=== PATIENT | female | born 1950 | race Caucasian/White ===

== ENCOUNTER → 2020-09-12 13:17 | Outpatient (CLI) | payer OTHER, SELFPAY ==
[2020-09-12 16:04] LABS: COVID19 -Nasal RAPID Negative (Negative)
== END ==
PROVIDERS: Visit Provider Physician Assistant
DX: Z01.812 Encounter for preprocedural laboratory examination (principal); Z20.822 Contact with and (suspected) exposure to COVID-19
CPT/HCPCS: 87635

== ENCOUNTER 2020-09-14 08:58 | Day surgery (SDC) | payer OTHER, SELFPAY ==
[2020-09-14] VITALS (8 sets, daily range): BP systolic 108–160; BP diastolic 65–81; PULSE 61–70; RESP 14–19; TEMP 36.4–36.6; O2SAT 96–97; BMI 44.2
--- NOTE | 2020-09-14 | PATH_ITS ---
[facility] Accession Number: [id number] . 01 Material submitted: . PART A: hepatic flexure - HEPATIC COLON POLYP PART B: sigmoid colon - SIGMOID POLYP . 02 Diagnosis: A. Hepatic Flexure Polyp, Biopsy: Tubular adenoma. . B. Sigmoid Colon Polyp, Biopsy: Tubular adenoma. MRV 09/16/2020 1312 Local . 02 Electronically signed: . Lyle Sanchez MD, PhD, Pathologist NPI- [id number] . 01 Gross description: . Part A: HEPATIC COLON POLYP: Received in formalin are 3 fragment(s) of hernandez, soft tissue measuring 0.7 x 0.2 x 0.2 cm to 0.3 x 0.2 x 0.2 cm submitted entirely in 1 cassette(s) Part B: SIGMOID POLYP: Received in formalin is 1 fragment(s) of hernandez, soft tissue measuring 0.5 x 0.3 x 0.3 cm submitted entirely in 1 cassette(s) /PATSY 09/15/2020 0554 Local . 02 Pathologist provided ICD-10: D12.3, D12.5 . 02 CPT . 362858, [id number] Performed at: 01 [facility] [address], [place], [place] [id number] MD Jeremy Gayle MD Phone: [phone] Performed at: 02 [facility] [address] [place], [place] [id number] MD Belgica aPrk MD Phone: [phone]
[2020-09-14] MEDS: SODIUM CHLORIDE 0.9% 1,000 ML 84 ML IV (09:35)
--- NOTE | 2020-09-14 10:24 | P.HP_ITS ---
History of Present Illness History of Present Illness Chief complaint: [facility] Narrative: Personal history of colon polyps and family history of colon cancer in a first-degree relative (father) Patient History Medical History (Updated 09/14/20 @ 09:15 by Sandra Canela RN) Chronic low back pain COPD (chronic obstructive pulmonary disease) History of adenomatous polyp of colon Hypothyroidism Surgical History (Updated 09/14/20 @ 09:16 by Sandra Canela RN) History of carpal tunnel surgery of right wrist History of rotator cuff surgery History of surgical removal of pilonidal cyst Family & Social History Family History (Updated 09/14/20 @ 09:16 by Sandra Canela RN) Father Colon cancer Family/Other Colon cancer Tobacco & Substance use: Smoking Status Former smoker alcohol intake current alcohol intake frequency a few times a month Substance Use Type does not use Meds Home Medications and Allergies Home Medications Medication Instructions Recorded Confirmed Type albuterol sulfate 2.5 mg INHALATION QID PRN 09/14/20 09/14/20 History levothyroxine 50 mcg tablet 50 mcg PO DAILY 09/14/20 09/14/20 History montelukast 10 mg tablet 10 mg PO DAILY 09/14/20 09/14/20 History Allergies Allergy/AdvReac Type Severity Reaction Status Date / Time pollen extracts Allergy Verified 09/14/20 09:17 Exam Vital Signs (past 8 hours): - 09/14/20 09:23 Temperature 97.5 F L Pulse Rate 70 Respiratory Rate 18 Blood Pressure 160/81 H Pulse Oximetry 96 Oxygen Delivery Method Room Air Oxygen Flow Rate 0 Narrative Exam Narrative: Oropharynx free of lesions Chest clear to auscultation percussion Cardiac exam reveals no S3 or murmur Assessment & Plan Assessment & Plan narrative: History of colon polyps and family history of colon cancer need for follow-up colonoscopy. Risks, benefits, alternatives have been explained.
--- NOTE | 2020-09-14 10:25 | P.OP.ENDO_ITS ---
Operative Date/Time/Diagnoses Date of procedure: 09/14/20 Pre-op diagnosis: See indication and findings Procedure & Clinicians Study performed: Colonoscopy Indications: Personal history of colon polyps and family history of colon cancer in a first-degree relative Surgeon: Leigha Walton Procedure Notes Procedure in detail: After informed consent was obtained patient was placed in left lateral decubitus position. The video colonoscope was introduced the rectum slowly advanced to cecum. On slow withdrawal mucosa was carefully examined. The scope was removed. The patient tolerated procedure well. Blood loss none Complications none Sedation Total sedation time 22 minutes Versed 8 mg fentanyl 100 micro g IV titration Findings 1. 6 mm polyp at the opening to a diverticulum in the sigmoid cold snared and removed completely 2. Eight mm sessile polyp at the hepatic flexure. Cold snared and removed com pletely 3. Extensive sigmoid and left-sided diverticulosis 4. Otherwise negative colonoscopy to cecum. Will be in touch regarding pathology results patient will need follow-up colonoscopy in 5 years.
[2020-09-14] MEDS: fentaNYL 250 MCG/5 ML INJ IV (10:34)
[2020-09-14] MEDS: MIDAZOLAM 5 MG/5 ML VIAL IV (10:46)
--- NOTE | 2020-09-14 11:33 | SUR.PHASEII ---
Report to Kelsea RN, pt to pacu phase 2 in stable condition sitting up chatting with staff and drinking gingerale
== END 2020-09-14 12:05 | disposition home or self-care (01) ==
PROVIDERS: Referring Provider Internal Medicine Gastroenterology; Visit Provider Internal Medicine Gastroenterology
PROC: 0DJD8ZZ Inspection of Lower Intestinal Tract, Via Natural or Artificial Opening Endoscopic (ICD-10-PCS; CPT 45378; principal; 2020-09-14 10:00)
DX: Z12.11 Encounter for screening for malignant neoplasm of colon (principal); Z86.010 Personal history of colon polyps; Z80.0 Family history of malignant neoplasm of digestive organs; J44.9 Chronic obstructive pulmonary disease, unspecified; E03.9 Hypothyroidism, unspecified; K57.30 Diverticulosis of large intestine without perforation or abscess without bleeding; D12.3 Benign neoplasm of transverse colon; D12.5 Benign neoplasm of sigmoid colon
CPT/HCPCS: 45385; J2250; J3010

== ENCOUNTER → 2022-08-24 13:01 | Outpatient (CLI) | payer OTHER, SELFPAY ==
[2022-08-24 13:52] LABS: Add Manual Diff / Slide Review NO; Basophils Absolute Auto 100 /uL (0-100); Basophils Percent Auto 0.7 % (0-2); Eosinophils Absolute Auto 200 /uL (0-450); Eosinophils Percent Auto 2.5 % (2-4); Hematocrit 40.2 % (36-46); Hemoglobin 13.4 g/dL (12.0-16.0); Lymphocytes Absolute Auto 2100 /uL (1100-4500); Lymphocytes Percent Auto 30.6 % (25-40); Mean Corpuscular HGB Conc 33.4 % (30-36); Mean Corpuscular Hemoglobin 30.9 PG (26-34); Mean Corpuscular Volume 92.4 fL (80-100); Monocytes Absolute Auto 600 /uL (0-900); Monocytes Percent Auto 8.1 % (3-14); Neutrophils Absolute Auto 4000 /uL (1500-7000); Neutrophils Percent Auto 58.1 % (50-75); Platelet Count 203 X10^3/uL (150-400); Red Blood Cell Count 4.35 X10^6/uL (4.0-5.2); Red Cell Distribution Width 14.1 % (11.6-14.8); White Blood Cell Count 6.9 X10^3/uL (4.5-11.0)
[2022-08-24 14:17] LABS: BUN Creatinine Ratio 26.8 (6-22); Blood Urea Nitrogen 22 mg/dL (7-17); Carbon Dioxide 31 mmol/L (22-32); Chloride 105 mmol/L (98-107); Estimated Glomerular Filt Rate > 60 mL/min (>60); Glucose 136 mg/dL (80-110); HEMOLYSIS < 15 (0-50); Potassium 4.3 mmol/L (3.4-5.1); Sodium 140 mmol/L (137-145)
[2022-08-24 14:41] LABS: Appearance Urine UA CLEAR; Bilirubin Urine UA NEGATIVE (NEGATIVE); Color Urine UA YELLOW; Glucose Urine UA NEGATIVE (Negative); Ketones Urine UA NEGATIVE (NEGATIVE); Leukocyte Esterase Urine UA NEGATIVE (NEGATIVE); Nitrite Urine UA POSITIVE (Negative); Occult Blood Urine UA NEGATIVE (Negative); Protein Urine UA NEGATIVE (Negative); Specific Gravity Urine UA 1.025 (1.000-1.035)
[2022-08-24 14:48] LABS: pH Urine UA 5.5 (4.5-8.0)
[2022-08-24 14:57] LABS: Bacteria Urine Many (>30); Culture Indicated Urine Specimen Cultured; RBC Urine 1-5/HPF (0-5/HPF); Squamous Epithelial Cell Urine 1-5 /HPF (0-5/HPF); WBC Urine 1-5/HPF (0-5/HPF)
[2022-08-25 08:39] LABS: x Labcorp Estim. Avg Glu (eAG) 117 mg/dL (.); x Labcorp Hemoglobin A1c 5.7 % (4.8-5.6)
== END ==
PROVIDERS: PCP Registered Nurse; Referring Provider Orthopaedic Surgery; Visit Provider Orthopaedic Surgery
DX: Z01.818 Encounter for other preprocedural examination (principal); Z01.812 Encounter for preprocedural laboratory examination; R73.9 Hyperglycemia, unspecified; N39.0 Urinary tract infection, site not specified
CPT/HCPCS: 36415; 80048; 81001; 83036; 85025; 87077; 87086; 87186; 93005; 93010

== ENCOUNTER 2023-04-23 11:36 | Day surgery (SDC) | payer OTHER, SELFPAY ==
[2023-04-17 13:57] VITALS: BMI 39.4
[2023-04-23] VITALS (13 sets, daily range): BP systolic 95–140; BP diastolic 42–75; PULSE 55–73; RESP 10–18; TEMP 35.9–37.2; O2SAT 91–100; BMI 38.5
[2023-04-23] MEDS: LACTATED RINGERS 1,000 ML 42 ML IV (12:03)
[2023-04-23] MEDS: CELECOXIB 200 MG CAPSULE PO (12:40)
[2023-04-23] MEDS: ACETAMINOPHEN 325 MG TABLET 975 MG PO (12:40)
[2023-04-23] MEDS: VANCOMYCIN 1,000 MG/200 ML PIGGYBACK 200 MG IV (13:14)
--- NOTE | 2023-04-23 14:00 | DI.RAD.S_ITS ---
PROCEDURE: XR PELVIS 1-2V INDICATIONS: JEFFERY TECHNIQUE: 1 view of the lower pelvis acquired. COMPARISON: None. FINDINGS: Bones: Patient is status post left hip arthroplasty, with hardware components in expected positions. The hip joint appears congruent. The visualized bony structures appear intact. Soft tissues: Overlying postoperative changes are noted. No suspicious soft tissue densities. IMPRESSION: Expected post-operative appearance of a hip arthroplasty. Approved by: Daniel Fowler M.D. on 04/23/2023 at 21:22
--- NOTE | 2023-04-23 14:21 | P.OP_ITS ---
Operative Date/Time/Diagnoses Date of procedure: 04/23/23 Time of procedure: 14:50 Pre-op diagnosis: Severe left hip OA Post-op diagnosis: same Procedure & Clinicians Procedure: Left total hip arthroplasty posterior Same procedure as scheduled: Yes Indications: The patient has had progressively worsening left hip pain with radiographic changes consistent with arthritis. Non-operative management has failed and the patient has requested total hip replacement. The risks, benefits and alternatives to surgery were discussed with the patient prior to proceeding. Risks discussed included, but were not limited to, failure to relieve pain, leg length discrepancy, dislocation, stiffness, infection, nerve damage, deep venous thrombosis, pulmonary embolism, stroke, coma, heart attack, permanent paralysis and , as well as the potential need for eventual revision of the prosthetic. Surgeon: Tena Casillas Test Architect: Alexandre Pérez Anesthesia Type: General and Peripheral nerve block Operative Notes Findings: Severe left hip OA, adequate stability Closure Type: primary Specimen(s): none sent Prosthetic devices, grafts, tissues, transplants, or devices: Casillas and nephew polar stem size 2 standard with collar, R3 size 50,one 6.5 mm screw, neutral poly liner, 36 by 50, 36 by - 3 cobalt chromium head Estimated Blood Loss (mL): 250 Procedure in detail: The patient was seen in the pre-operative area, where the patient identified the left hip as the operative site and this was marked with my initials. The patient received pre-operative antibiotics and was taken to the operating room and placed on the operative table in the right lateral decubitus position after satisfactory anesthesia. A director of public safety out? was performed. The left leg was prepared from the ankle to the iliac crest with ChloroPrep in the usual fashion and draped through sterile drapes. A PA was used during the procedure was essential for intraoperative retraction and safe implantation of the components. Patient was large and had a fairly stiff hip and 2 PAs were used for retraction and implantation of the components. The hip was approached through an approximately 20 cm incision centered over the greater trochanter and curving gently posteriorly as it went proximally. This was carried sharply to the fascia ashlyn, which was divided and retracted with a self retaining retractor. The trochanteric bursa was excised with care being taken to avoid the sciatic nerve, which was identified and protected throughout the case. The short external rotators were incised and the capsulomuscular flap was raised and tagged for later repair. The hip was dislocated, and a femoral neck osteotomy performed approximately 15 mm above the lesser trochanter. Retractors were placed around the femur. The canal was opened with a box cutting osteotome, followed by a T handled reamer and a lateralizing reamer. The chili pepper broach was then used, followed by sequential broaching until there was good stability of the broach in the femur. Retractors were placed to expose the acetabulum. The labrum and central soft tissues were removed. Reaming was performed initially going up in 2 mm increments, then 1 mm increments until good bite was obtained with an odd sized reamer. The cup 1 mm larger than the last reamer was then inserted using the appropriate anteversion guides. It was further stabilized with a single screw. A trial neutral liner was placed. The broach was placed in the canal. A trial head and neck were then placed and the hip relocated and checked for leg length and stability. An intraoperative film confirmed the component position and no evidence of fracture. The patient was stable in the position of sleep, of squatting, and could be put through a range of motion with 45 degrees internal rotation without dislocation. At 90 degrees flexion, internal rotation to 70? was possible before dislocation. This was felt to be satisfactory and the appropriate components were opened, and the trials were removed. The acetabular liner was impacted into position. The final stem was then impacted into the prepared femoral canal. A brief Betadine soak was performed while trialing with head options. The hip was meticulously irrigated with normal saline. Finally the femoral head was impacted onto the stem. The acetabulum was cleared of all material and the hip relocated one final time. The capsulomuscular flap was then repaired to the greater trochanter though an awl hole using the tag sutures. The short external rotators were repaired with a nonabsorbable suture. The fascia ashlyn was closed with Vicryl. The subcutaneous layer was closed with barbed sutures and skin dimas. A erma Dressing was applied and the patient was taken to recovery having tolerated the procedure well. Complications: none Post-operative Condition: stable Disposition: Acute Care Plan for aftercare: The patient will be maintained on a standard total hip replacement protocol with weight bearing as tolerated and posterior hip precautions. The patient will receive Aspirin and sequential compression devices for DVT prophylaxis. The patient will be discharged home when safe for the home environment.
--- NOTE | 2023-04-23 14:21 | PM.PREOP ---
Pre-operative Note Interval Note History & Physical reviewed/Exam performed by Physician: Yes Changes to H&P: No
--- NOTE | 2023-04-23 14:34 | SUR.OPER ---
Lateral on padded OR bed. Gel axillary roll. Arms secured on padded armboard with pillow supporting top arm. Padded hip positioner braces x4 - anterior and posterior chest and pelvis. Additional gel pad used anterior pelvis. Gel pad under bottom leg from knee to foot and secured with tape over sheet.
[2023-04-23] MEDS: CEFAZOLIN 2 GM/100 ML PREMIX 100 ML IV ×2 (15:20→23:57)
[2023-04-23] MEDS: TRANEXAMIC ACID 1,000 MG VIAL 1000 MG INJ ×2 (15:25→16:51)
[2023-04-23] MEDS: BUPIVACAINE LIPOSOME 266 MG/20 ML VIAL INJ (15:48)
[2023-04-23] MEDS: BUPIVACAINE 0.25% (PF) 60 ML, EPINEPHrine 0.3 MG INJ (15:52)
--- NOTE | 2023-04-23 17:30 | DI.RAD.S_ITS ---
PROCEDURE: XR HIP W PEL IF DONE LT 2V INDICATIONS: POST OP LEFT TOTAL HIP TECHNIQUE: AP pelvis and lateral view of the hip acquired. [facility] 04/23/2023, 16:13. FINDINGS: Bones: Patient is status post left hip arthroplasty, with hardware components in expected positions. The hip joint appears congruent. The visualized bony structures appear intact. Soft tissues: Overlying postoperative changes are noted. No suspicious soft tissue densities. IMPRESSION: Expected post-operative appearance of a hip arthroplasty. Dictated by: Carl Pink M.D. on 04/24/2023 at 8:49 Approved by: Carl Pink M.D. on 04/24/2023 at 8:50
[2023-04-23] MEDS: ONDANSETRON 4 MG/2 ML INJ IV (17:41)
[2023-04-23] MEDS: hydrOXYzine 50 MG/ML INJ 25 MG IM (17:42)
[2023-04-23] MEDS: HYDROMORPHONE 1 MG INJ IV ×2 (17:42→17:57)
[2023-04-23] MEDS: OXYCODONE IR 5 MG TABLET PO (18:18)
[2023-04-23] MEDS: LACTATED RINGERS 1,000 ML 100 ML IV (18:26)
--- NOTE | 2023-04-23 18:43 | SUR.PHASEI ---
Pt transfered to room 207 by this RN with walker and 1 belongings bag. Peace sign broach from walker that fell off given to daughter in specimen cup. Handoff to Ольга DEXTER at bedside.
[2023-04-23] MEDS: METFORMIN HCL 500 MG TABLET 1000 MG PO (19:05)
[2023-04-23] MEDS: ASPIRIN EC 81 MG TABLET PO (20:57)
[2023-04-23] MEDS: DOCUSATE 100 MG CAPSULE PO (20:57)
[2023-04-23] MEDS: IBUPROFEN 400 MG TABLET PO (23:58)
[2023-04-23] MEDS: ACETAMINOPHEN 325 MG TABLET 650 MG PO (23:58)
[2023-04-24] VITALS: BP 119/61; PULSE 77; RESP 16; TEMP 36.7; O2SAT 92
[2023-04-24 05:00] VITALS: BP 102/51; PULSE 68; RESP 17; TEMP 36.8; O2SAT 95
[2023-04-24] MEDS: LACTATED RINGERS 1,000 ML 100 ML IV (05:10)
[2023-04-24] MEDS: LEVOTHYROXINE 50 MCG TABLET PO (05:24)
[2023-04-24] MEDS: IBUPROFEN 400 MG TABLET PO ×5 (05:24→20:43)
[2023-04-24] MEDS: ACETAMINOPHEN 325 MG TABLET 650 MG PO ×4 (05:25→22:59)
[2023-04-24 06:26] LABS: Hematocrit 35.6 % (36-46)
[2023-04-24 08:00] VITALS: BP 98/50; PULSE 63; RESP 16; TEMP 37.1; O2SAT 98
[2023-04-24] MEDS: DOCUSATE 100 MG CAPSULE PO ×2 (08:02→20:43)
[2023-04-24] MEDS: CEFAZOLIN 2 GM/100 ML PREMIX 100 ML IV (08:02)
[2023-04-24] MEDS: ASPIRIN EC 81 MG TABLET PO ×2 (08:02→20:43)
--- NOTE | 2023-04-24 08:22 | PM.DS.1 ---
History of Present Illness History of Present Illness Date Patient Seen: 04/24/23 Time Patient Seen: 07:00 Chief complaint: OPB Narrative: Procedure: Left total hip arthroplasty posterior Same procedure as scheduled: Yes Indications: The patient has had progressively worsening left hip pain with radiographic changes consistent with arthritis. Non-operative management has failed and the patient has requested total hip replacement. The risks, benefits and alternatives to surgery were discussed with the patient prior to proceeding. Risks discussed included, but were not limited to, failure to relieve pain, leg length discrepancy, dislocation, stiffness, infection, nerve damage, deep venous thrombosis, pulmonary embolism, stroke, coma, heart attack, permanent paralysis and , as well as the potential need for eventual revision of the prosthetic. Surgeon: Tena Casillas Cut And Cover Line Worker: Alexandre Pérez Anesthesia Type: General and Peripheral nerve block Operative Notes Findings: Severe left hip OA, adequate stability Closure Type: primary Specimen(s): none sent Prosthetic devices, grafts, tissues, transplants, or devices: Casillas and nephew polar stem size 2 standard with collar, R3 size 50,one 6.5 mm screw, neutral poly liner, 36 by 50, 36 by - 3 cobalt chromium head Estimated Blood Loss (mL): 250 This morning patient has no new complaints of nausea vomiting fever or chills. Patient states she has pre-operative numbness down her left leg with no change this morning. She was able to control her pain with oral medications. She was able to use the toilet with assistance last night. Discharge Providers Provider Date of admission: 04/23/2023 Discharge Date: 04/24/23 Primary care physician: JOVITA Jo Consults: 04/23/23 06:00 Consult to Anesthesiology Routine Comment: Consulting Provider: Anesthesiologist Reason for consultation: Regional block for post operative pain control 04/23/23 16:50 Consult to Discharge Planning Routine Comment: Consult to Occupational Therapy Evaluate & Treat Comment: Physician Instructions: Evaluate and treat Consult to Physical Therapy Evaluate & Treat Comment: Physician Instructions: post op JEFFERY protocol Discharge provider: Alexandre Pérez PA-C Summary Hospital Course Discharge Diagnosis: Status post left hip total arthroplasty posterior approach Hospital Course: Multimodal pain control. Physical therapy. Status at Discharge Cognitive/behavioral status at discharge: oriented Functional status at discharge: uses cane/walker Overall status at discharge: patient is back to baseline Time Spent with Patient Time spent: Less than 30 minutes Exam Vital Signs (past 8 hours): - 04/24/23 05:00 04/24/23 08:00 Temperature 98.2 F 98.8 F Pulse Rate 68 63 Respiratory Rate 17 16 Blood Pressure 102/51 L 98/50 L Pulse Oximetry 95 98 Oxygen Flow Rate 2 0 Oxygen Delivery Method Nasal Cannula Oxygen Flow Rate 0 Narrative Exam Narrative: Patient found sleeping in bed easily aroused. JENNIFER dressing appears to be well-maintained no signs of drainage. No increase in pain with compression of posterior thigh or calf on the left side. Sensation is grossly intact of the lower extremity. Patient is able to dorsiflex or plantarflex against resistance at the left ankle. Const General: cooperative and comfortable Chest Chest: normal inspection of the chest and normal palpation of entire chest wall Objective Labs 04/24/23 05:55 Labs: Laboratory Results - last 24 hr 04/24/23 05:55 Hgb 12.0 Hct 35.6 L PFSH Medical History (Updated 04/17/23 @ 14:28 by Barbara Cardoso RN) History of COVID-19 (03/02/23) Pre-diabetes Emphysema of lung Seasonal allergies History of adenomatous polyp of colon Hypothyroidism Chronic low back pain COPD (chronic obstructive pulmonary disease) Surgical History (Updated 04/17/23 @ 14:10 by Barbara Cardoso RN) Hx of tonsillectomy History of reversal of tubal ligation Hx of tubal ligation Hx of colonoscopy (09/14/20) History of carpal tunnel surgery of right wrist History of surgical removal of pilonidal cyst History of rotator cuff surgery Family History (Updated 09/14/20 @ 09:16 by Sandra Canela RN) Father Colon cancer Family/Other Colon cancer Social History household members: family and children Smoking Status: Former smoker alcohol intake: current Discharge Assessment & Plan Assessment and Plan Assessment: Status post left hip total arthroplasty posterior approach. Plan of Treatment: Discharge home tomorrow. Patient has already received post operative medications and has been instructed in their use. Patient is reminded to take aspirin 81mg bid for DVT prophylaxis. Start outpatient physical therapy in 5-7 days. Follow up at [facility] in 2 weeks for wound check. Discharge Plan Discharge Plan Patient Disposition: Home Provider Discharge Comment: DC home pending PT approval. Discharge orders & Medications Prescriptions: No Action metformin 500 mg Tablet 1,000 mg PO QPM albuterol sulfate 90 mcg/actuation Hfa Aerosol Inhaler 2 puff INHALATION Q4-6H PRN (Reason: Shortness Of Breath) albuterol sulfate 2.5 mg /3 mL (0.083 %) Solution For Nebulization 2.5 mg INHALATION QID PRN (Reason: WHEEZES) levothyroxine 50 mcg tablet 50 mcg PO DAILY montelukast 10 mg tablet 10 mg PO DAILY Follow up/Referrals: Josi Harding FNP-[facility] [Primary Care Provider] - Tena Casillas MD [Physician] - 05/08/23 11:30 am (Follow up w/ Ronnell Pérez PA-C, at [facility] office in [place].) Diet/Activity/Treatments Diet: Diet as Tolerated Activity: Weightbearing as tolerated to left leg. Posterior hip precautions. Cold/Heat Therapy: Ice to hip as needed for pain. Skin/Wound/Dressing Care Report to your healthcare provider any signs of infection, such as:: chills, fever, night sweats, unusual drainage and unusual redness Dressing: May shower. Keep dressing in place until follow up in office. No bathing or soaking incision. Call the office if the dressing becomes saturated inside. Visit Report/Discharge Packet Instructions: DI for Hip Replacement Stand Alone Forms: Patient Portal/API Discharge Data Primary Care Provider: Josi Harding Attending Provider: Tena Casillas Quality VTE Deep Vein Thrombosis/Pulmonary Embolism Present on Admission: No
[2023-04-24] MEDS: MONTELUKAST 10 MG TABLET PO (08:36)
--- NOTE | 2023-04-24 09:08 | CM.DANOTE ---
Initial DCP Assessment Note Reviewed EMR and team rounds for status updates. Met with pt at bedside to introduce self and role. Pt was found to be alert/oriented and able to discuss her d/c today and aftercare plan. Her dtr will plan to transport her once medically cleared for d/c later this morning. Payor: [facility] Attending: Dr. Casillas Pt is a 72 year-old F post-op day 1 from her L-hip total arthroplasty surgery. She is expressing feeling comfortable, minimal pain, and has not required any pain medication this morning. She will work with PT this morning before she discharges home. Pt understands the Ortho instructions for starting OP PT therapy 5-7 days post-op, and Ortho wound care check in 2-weeks. She has all needed DME at home in preparation for her home recovery needs, and her dtr is planning to stay with her for 2-weeks post-d/c in order to provide for her care and ADL needs. No further needs identified for DCP assistance at this time. Discharge Planning/Care Management CM Discharge Assessment Start: 04/24/23 09:05 Freq: Status: Active Protocol: Document 04/24/23 09:06 DPL (Rec: 04/24/23 09:07 DPL [id number]) Discharge Planning Assessment Assigned Mc Kay Machine Operator LISET Álvarez Advance Directives? No History Provided By Patient,Medical Record Expected Length of Stay 1 Prior Living Arrangements House Household Members family,children Type of transporation used prior to Drives own vehicle admit Independent with ADL's Yes Is patient alert and oriented? Yes Caregiver for Another No DME Already Rented / Owned FWW / Walker,Cane Patient/Family Preference OP PT Therapy Barriers to Discharge No Discharge Plan Home Community Services Physical Therapy Referrals Initiated None needed Whiteboard Updated in Patient Room with Yes name and ext. # of Mc Kay Machine Operator Review Status In Process Please Provide Date Initial DC 04/24/23 Assessment Was Performed Pre-Anesthesia Assessment Start: 04/17/23 13:57 Freq: Status: Active Protocol: Document 04/17/23 13:57 CAB (Rec: 04/17/23 14:38 CAB [id number]) Pre-Anesthesia Assessment Preferred Name Zari Diagnostic Results BMP/CMP,CBC,EKG Comment Outside labs scanned in EKG @ [facility] 08/24/22 Primary Care Provider Josi Harding Seen Specialist in Last 12 Months Yes Specialist Seen Orthopedist Primary Language French Preferred Language French Hvac Refrigeration Technician Required No Height 160.02 cm Weight 101.151 kg Body Mass Index (BMI) 39.4 Hearing Ability Normal Visual Assist Glasses Dentition Type Teeth, Natural Present,Dental Implants Barriers to Learning None Hx Anesthesia Reactions No: I felt all the pain with a colonoscopy Pt concerned about getting Additional comment enough anesthesia Hx Family Anesthesia Reaction No Hx Malignant Hyperthermia No Hx Blood Transfusions No Hx Blood Transfusion Reaction No Anesthesia Review Requested No Tubing Supervisor No alcohol intake current alcohol intake frequency a few times a month Smoking Status Former smoker how long ago did patient quit smoking Approximately 2018 Substance Use Type does not use Pain Present Pain Reported Musculoskeletal Symptoms Abnormal Gait,Difficulty Walking,Joint Pain History of Falling (Recent or History of No ) Patient is completely paralyzed or No completely immobile Prosthesis or Orthotic Device Cane Mental Status Oriented to own ability Is patient on oxygen? No Does patient have CAICEDO/SOB Yes: A little Hx Sleep Apnea No CPAP/BIPAP use not prescribed Currently Taking a Beta Yareli No Can You Climb a Flight of Stairs Without No SOB Hx Chest Pain No Hx SOB Yes: A little Hx Syncope or Dizziness No Anti-Coagulant Therapy No Has a Talent Acquisition Associate No Cardiac Testing No Hx Pacemaker/ICD No Pacemaker Rep Required? No Cardiac Clearance Received Not Applicable Diet Type At Home Low Carb Dysphagia No Gastrointestinal Symptoms None Bladder Pattern Urgency Hx Urinary Self Catheterization No Diabetes No: Pre-diabetes HgbA1C 5.6 Date 03/21/23 Patient No Lactating No Hx Drug Resistant Organism No Presence of External or Internal Medical No Devices Received a COVID vaccine? Yes Received all doses? Yes Marital Status Lives With family,children Current Living Arrangements House Number of Floors (Floors) Two Floors Support System Child/Children Does the Patient Have Assistance After Yes Surgery Patient Discharge Plan Description Return Home,Other Comment Will DC to sister's house for a few days, then back to her home w/daughter Additional comment to assist with care. Pt advised same day surgery per surgeon Feels Safe in Current Environment Yes Been Physically Hurt or Threatened By a No Person in Current Environment Do you have thoughts of harming yourself None or others? Are you currently considering suicide? No Do you have a plan to hurt yourself or No Plan others? Do You Have Any Spiritual Beliefs That No May Affect Your HC Choices? Do You Have Any Cultural Practices That No May Affect Your HC Choices? Who Can We Speak to About Patient's Care Family, friends Identifying Code for Release of Patient Declines to issue Information Health Care Proxy/Next of Kin Carri (daughter) Health Care Proxy Emergency Contact Name Carri (daughter) Emergency Contact Advance Directives? No Power of Net Solutions Architect No PAC Instructions Diabetes instructions,Do not shave/clip surgical site, Durable medical equipment, Medications to take/avoid, Nasal antibiotic,No ETOH/ petroleum product on skin DOS, NPO,Post-op transportation,Pre -surgical wash,Sensory aids, Sturdy shoes/comfortable clothes,Do not bring valuables and remove jewelry
--- NOTE | 2023-04-24 09:45 | OT.IP.EVAL ---
Current Diagnoses Unilateral primary osteoarthritis, left hip (04/23/23) Surgery Performed Operation Date: 04/23/23 13:45 Actual Procedures p Total Hip Arthroplasty(Left) - Tena Casillas MD Past Medical History (Last Updated 04/17/23 @ 14:28 by Barbara Cardoso, RN) Chronic low back pain COPD (chronic obstructive pulmonary disease) Emphysema of lung History of adenomatous polyp of colon History of COVID-19 (03/02/23) Hypothyroidism Pre-diabetes Seasonal allergies Surgical History (Last Updated 04/17/23 @ 14:10 by Barbara Cardoso RN) History of carpal tunnel surgery of right wrist History of reversal of tubal ligation History of rotator cuff surgery History of surgical removal of pilonidal cyst Hx of colonoscopy (09/14/20) Hx of tonsillectomy Hx of tubal ligation Occupational Therapy Inpatient Evaluation/Re-Eval M1 PT/OT-IP Prior Functional Status Start: 04/24/23 11:11 Freq: NEEDED Status: Active Protocol: Document 04/24/23 08:55 [facility] (Rec: 04/24/23 11:25 [facility] [id number]) Medical Review Prior Functional Status Medical History Reviewed Yes Communication Independent Mobility and Gait Pt used a cane. Activities of Daily Living and IADL's Pt states had pain with ADL and IADl needs. Prior Functional Level (Other details) Pt to stay with her sister initially. Social History Household Members family,children Living Arrangements House Number of Stairs To Enter/Railing? No steps to enter. There are 2 steps to her sleeping area with a stool on the right and chair on the left for support per pt. 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 M2 OT-IP Current Condition Start: 04/24/23 11:11 Freq: Status: Active Protocol: Document 04/24/23 08:55 [facility] (Rec: 04/24/23 11:25 [facility] [id number]) Occupational Therapy Current Condition Current Condition Evaluation Date 04/24/23 Treatment Diagnosis S/P L JEFFERY posterior approach Diagnosis Onset Date 04/23/23 Post Operative Precautions Posterior Hip Precautions No Hip Flexion > 90 degrees,No Hip Internal Rotation,No Hip Adduction M3 OT- IP Subjective and Pain Start: 04/24/23 11:11 Freq: Status: Active Protocol: Document 04/24/23 08:55 [facility] (Rec: 04/24/23 11:25 [facility] [id number]) OT- Subjective Occupational Therapy Visit Type Type Initial Evaluation Visit Start Time 08:55 Visit Stop Time 09:45 Occupational Therapy Visit Comments Patient Comments Pt agreed to get up. Patient/Caregiver Goals To go home. OT Pain Assessment Pain When Pain Assessed At Rest Pain Present Pain Present Pain Reported Location left hip Intensity 3 Scale Used Numeric (0 - 10) M4 OT- IP ADL's Start: 04/24/23 11:11 Freq: Status: Active Protocol: Document 04/24/23 08:55 [facility] (Rec: 04/24/23 11:25 [facility] [id number]) OT AIB-Faay-Srsmzwa General Evaluation Self-Feeding Ability Independent OT ADL-Grooming General Evaluation Grooming Ability Independent OT ADL-Oral Care General Eval Oral Care Ability Independent OT ADL-Dressing General Eval Lower Body Dressing Ability Maximum Assistance Areas Needing Assistance Socks,Shoes Comments OT Dressing Comments Able to educated pt on use of LB dressing equipment. Educated to mili the LLE first and take out last. OT ADL-Toileting Comments OT Toileting Comments Pt not having to go. Educated best to stand to wipe so best able to follow her hip precautions. In addition use of wipes/ pads will ne helpful . Pt's bathroom is 30ft away at her sister's house and best for pt to get a BSC. OT ADL-Bathing Comments OT Bathing Comments The shower is upstair and pt states will just sponge off for now. M5 OT- IP IADL's Start: 04/24/23 11:11 Freq: Status: Active Protocol: Document 04/24/23 08:55 [facility] (Rec: 04/24/23 11:25 [facility] [id number]) OT-Instrumental Activities of Daily Living Deficits IADL Deficits Identified Deficits Home Safety Awareness Awareness of Need for Assistance at Home Good Awareness Ability to Problem Solve Emergency Able to Problem Solve Situations Home Safety Comments Pt's sister and family to assist as needed. Meal Preparation Meal Preparation Caregiver Provides Assist Hand Paint Mixer Hand Paint Mixer Caregiver Provides Assist M6 OT- IP Functional Cognition Start: 04/24/23 11:11 Freq: Status: Active Protocol: Document 04/24/23 08:55 [facility] (Rec: 04/24/23 11:25 [facility] [id number]) Cognitive Factors Limiting Selfcare Function Cognitive Ability Level of Alertness Alert Patient Orientation Name,Age,Birthday,Month,Date, Year,Day of Week,Place, Situation Attention Span Ability Capable of Focused Attention, Capable of Sustained Attention Ability to Follow Commands Able to Follow One Step Commands Cognitive Comments Cognitive Assessment Comments Pt able to follow hip precautions for ADL and mobility needs. OT- Vision and Hearing OT- Hearing Assessment OT- Hearing Assessment WFL OT- Vision Assessment Visual Acuity Glasses All The Time Visual Attentiveness WFL Occular Pursuits WFL M7 OT- IP Mobility and Balance Start: 04/24/23 11:11 Freq: Status: Active Protocol: Document 04/24/23 08:55 [facility] (Rec: 04/24/23 11:25 [facility] [id number]) OT- Bed Mobility Assessment Supine to Sit Supine to Sit Assist Moderate Assistance Sit to Supine Sit to Supine Assist Moderate Assistance Scooting Scooting Up and Down in Bed Standby Assistance OT-Transfer Assessment Sit to and From Stand Sit to and from Stand Minimal Assistance Transfers Transfer Ability Minimal Assistance Technique Transfer Destination Bed,Chair Transfer Technique Stand Step Pivot Devices Transfer Assistive Devices Gait Belt,Front Wheeled Walker Comments Mobility Comments Pt MODA to assist to help get her LLE into and out of the bed at this time. Pt ELAINE to stand and able to follow sliding her LLE forwards prior to sitting and standing. Noted pt needing cues to tighten her LLE as weak and needing heavy use of her hands on the FWW. OT- Balance Assessment Sitting Balance and Reactions Static Sitting Balance Ability Good Dynamic Sitting Balance Ability Fair Standing Balance and Reactions Static Standing Balance Ability Fair Dynamic Standing Balance Ability Poor M8 OT- IP Objective Assessments Start: 04/24/23 11:11 Freq: Status: Active Protocol: Document 04/24/23 08:55 [facility] (Rec: 04/24/23 11:25 [facility] [id number]) OT Gross Range of Motion Upper Extremity Range of Motion Assessment Within Functional Limits OT Strength Upper Extremity Strength Assessment Within Functional Limits M9 OT- IP Assessment and Plan Start: 04/24/23 11:11 Freq: Status: Active Protocol: Document 04/24/23 08:55 [facility] (Rec: 04/24/23 11:25 [facility] [id number]) OT Summary Assessment and Plan Potential Rehabilitation Potential Good Analytic Complexity at Evaluation Low Summary OT Impairments Pain,Strength,Balance, Functional Mobility,Grooming, Dressing,Toileting,Bathing, Toilet Transfers,Shower Transfers,Activity Tolerance Progress Towards Goals Progressing Toward Goals,Slow Progress due to Pain Assessment Summary Pt low complexity and main barriers are pain and LLE still weak and needing assist for ADl and mobility needs. Pt to go to her sister's house to stay initially. Pt will benefit from getting a BSC and tub bench- however pt states will just sponge off for now as the tub/shower is up multiple steps. Pt to go home with 24/7 available assist and have outpt PT. Goals Self-Feeding Goal Independent Grooming Goal Independent Dressing Goal Independent,Long Handled Shoe Horn,Evaporator,Sock Aid Toileting Goal Independent Bathing Goal Standby Assistance Toilet Transfer Goal Independent Shower Transfer Goal Standby Assistance Days to Meet Goals 10 Frequency of Treatment Frequency Of Treatment Once a Day Treatment Plan OT Treatment Plan ADL Training,Functional Mobility,Patient/Family Education,Discharge Planning Discharge Recommendations OT Discharge Recommendations Home with 24/7 Assist Available,Outpatient PT Home Equipment Needs BSC, tub bench, LB dressing equipment Transportation Needs at Discharge Private Vehicle
--- NOTE | 2023-04-24 09:50 | PT.IIE ---
Current Diagnoses Unilateral primary osteoarthritis, left hip (04/23/23) Surgery Performed Operation Date: 04/23/23 13:45 Actual Procedures p Total Hip Arthroplasty(Left) - Tena Casillas MD Surgical History (Last Updated 04/17/23 @ 14:10 by Barbara Cardoso, RN) History of carpal tunnel surgery of right wrist History of reversal of tubal ligation History of rotator cuff surgery History of surgical removal of pilonidal cyst Hx of colonoscopy (09/14/20) Hx of tonsillectomy Hx of tubal ligation Medical History (Last Updated 04/17/23 @ 14:28 by Barbara Cardoso, GUERITA) Chronic low back pain COPD (chronic obstructive pulmonary disease) Emphysema of lung History of adenomatous polyp of colon History of COVID-19 (03/02/23) Hypothyroidism Pre-diabetes Seasonal allergies Physical Therapy Inpatient Evaluation/Re-Eval M1 PT/OT-IP Prior Functional Status Start: 04/24/23 11:46 Freq: NEEDED Status: Active Protocol: Document 04/24/23 09:50 [facility] (Rec: 04/24/23 12:03 AB [id number]) Medical Review Prior Functional Status Medical History Reviewed Yes Communication able to make needs known Mobility and Gait pt stated that she was modified independent wiht all mobilities and ambulation without AD but occasionally uses a walking stick depending on hip pain Activities of Daily Living and IADL's per OT note: Pt states had pain with ADL and IADl needs. Social History Household Members family,children Living Arrangements House Number of Floors (Floors) One Floor Number of Stairs To Enter/Railing? pt will go to her sister's house on d/c and sister will assist pt. home set up info is regarding pt's sister's house no steps to enter the house 1 step down to sunken living room where pt's recliner chair is location and where pt plans to sleep on at this time Home Environment Standard Height Toilet,Tub/ Shower Home Equipment Front Wheel Walker,Raised Toilet Seat Without Armrests Additional Social History Comment pt lives with her daughter and grandchildren but will d/c to her sister's house; sister will assist pt pt plans to sleep on a recliner pt stated that she plans on just doing sponge bathing for now M2 PT-IP Current Condition Start: 04/24/23 11:46 Freq: NEEDED Status: Active Protocol: Document 04/24/23 09:50 [facility] (Rec: 04/24/23 12:03 AB [id number]) Physical Therapy Current Condition Current Condition Evaluation Date 04/24/23 Treatment Diagnosis s/p L JEFFERY posterior; difficulty in walking Onset Date 04/23/23 M3 PT-IP Subjective Start: 04/24/23 11:46 Freq: NEEDED Status: Active Protocol: Document 04/24/23 09:50 [facility] (Rec: 04/24/23 12:03 AB [id number]) Subjective Physical Therapy Visit Type Type Initial Evaluation Visit Start Time 09:50 Visit Stop Time 10:55 Number of INDUSTRIAL DESIGNER Visits 0 Physical Therapy Visit Comments Patient Comments agreeable to do PT Therapy Pain Assessment Pain When Pain Assessed At Rest Pain Present Pain Present Pain Reported Location left hip Scale Used increases to 5/10 with mobility Pain Behaviors Facial Grimacing,Guarding, Holding Area Pain Management Techniques Apply Cold,Distraction, Modification of Treatment,Re- positioning,Timing of Activity with Medications M4 PT-IP Mobility and Gait Start: 04/24/23 11:46 Freq: NEEDED Status: Active Protocol: Document 04/24/23 09:50 [facility] (Rec: 04/24/23 12:03 AB [id number]) PT-Bed Mobility Assessment Supine to Sit Supine to Sit Standby Assistance,Head of Bed Elevated,Bedrails PT-Transfer Assessment Sit to and From Stand Sit to and from Stand Contact Guard Assistance, Minimal Assistance,1 Person Assistance,Use of Upper Extremities Equipment Transfer Assistive Device Gait Belt,Front Wheeled Walker Orthotic/Prosthetic Devices or Brace: No Transfers Transfer Destination Toilet Transfer Technique ambulated Transfer Ability Level of Assist Contact Guard Assistance, Minimal Assistance,1 Person Assistance,Use of Upper Extremities Comments Mobility Comments pt supine in bed and agreeable to do PT. obtained PLOF and home set up from pt. pt already worked with OT. reviewed posterior hip precautions with pt but pt only recalled 1/3 and had confusion regarding her precautions. educated pt regarding her hip precautions. post-op folder reviewed with pt as well. BP in supine: 116 /50. pt completed supine to sit SBA. cued for hip precautions. BP in sittin/60. pt stated that she has to use the toilet. completed sit to stand min A and cues for precautions. ambulated to the toilet using fWW min A. cued for L quads activation and stability. pt stated that L knee has h/o giving out on her. pt required min A for controlled descent to the toilet using grab bar. pt completed sit to stand from the toilet using grab bar to assist CGA to min A. pt ambulated from the toilet using fWW towards the sink CGA to min A. pt able to maintain standing CGA while completing handwashing. pt ambulated to the chair using fWW CGA and cues. positioned pt on the chair. call light and table placed within reach. caregiver training set up. pt stated that her sister will be the main person to assist her but is [place] and prefers her daughter to come in for the training and her daughter will be able to let her sister know how to assist her. daughter will come in at ~ 1pm this afternoon for caregiver training. Gait Assessment Gait Gait Assistance Required: Contact Guard Assist,Minimum Assistance Distance (Feet) 20 Able to Maintain Weight Bearing Status Yes During Gait Assistive Devices Assistive Device Gait Belt,Front Wheeled Walker Orthotic/Prosthetic Devices or Brace: No Gait Deviations General Gait Pattern Antalgic,Decreased Stride Length,Decreased Feet Clearance Factors Limiting Gait Function Factors Limiting Gait Function Decreased Activity Tolerance, Decreased Strength,Difficulty Following Directions,Limited Range of Motion,Pain,Poor Balance,Poor Safety Awareness PT-Balance Assessment Sitting Balance and Reactions Static Sitting Balance Ability Good Dynamic Sitting Balance Ability Good Standing Balance and Reactions Static Standing Balance Ability Fair Dynamic Standing Balance Ability Fair Device Used FWW M5 PT-IP Objective Assessments Start: 04/24/23 11:46 Freq: NEEDED Status: Active Protocol: Document 04/24/23 09:50 [facility] (Rec: 04/24/23 12:03 [id number]) Orientation Orientation/Cognition Level of Alertness Alert Orientation Name Safety Awareness Decreased Safety Awareness Memory Description Short Term Impaired Gross Range of Motion Lower Extremity ROM Assessment Within Functional Limits Strength Lower Extremity Strength Assessment Left Impaired Hip 3-/5 Knee 3+/5 Sensation Assessment Sensation Gross Sensation WNL Muscle Tone Muscle Tone WNL Yes M6 PT-IP Treatment Start: 04/24/23 11:46 Freq: NEEDED Status: Active Protocol: Document 04/24/23 09:50 [facility] (Rec: 04/24/23 12:03 [id number]) Physical Therapy Treatment Education Education Provided Precautions,Weight Bearing Status,Post-Op Packet,Safety M7 PT-IP Assessment and Plan Start: 04/24/23 11:46 Freq: NEEDED Status: Active Protocol: Document 04/24/23 09:50 [facility] (Rec: 04/24/23 12:03 AB [id number]) PT Summary Assessment and Plan Potential Rehabilitation Potential Fair Status of Condition at Evaluation Evolving Summary Impairments Pain,ROM,Strength,Balance, Coordination,Sensation,Tone, Cognition,Bed Mobility, Transfers,Gait,Activity Tolerance Assessment Summary pt is a 72 y/o F s/p L JEFFERY posterior approach POD 1. pt has L posterior hip precautions and is WBAT. pt requiring CGA to min A for transfers and ambulation using fWW and max cues for precautions and safety. caregiver training set up this afternoon at 1 pm.. will continue to assess progress. Goals Bed Mobility Goal Independent Transfer Goal Independent,Front Wheeled Walker Gait Goal Independent,Front Wheel Walker Gait Distance 150 Other Goals up/down 1 step using FWW SBA Days to Meet Goals 5 Frequency of Treatment Frequency Of Treatment Twice a Day Treatment Plan Physical Therapy Treatment Plan Bed Mobility Training,Transfer Training,Gait Training, Therapeutic Exercise,Balance Retraining,Post Op Education, Discharge Planning,Hot or Cold Pack,Neuromuscular Re-ed, Coordination Retraining,Manual Therapy Other Recommendations and Next Treatment caregiver trainin04/24/23 @ [facility] 1pm Precautions Posterior Hip Precautions No Hip Flexion > 90 degrees,No Hip Internal Rotation,No Hip Adduction Weight Bearing Status Weight Bearing Status Weight Bear as Tolerated Allowed Weight Bearing Amount (enter % LLE WBAT or #) (%) Recommendations To Nursing Amount of Assist Needed 1 Person Assist Discharge Recommendations PT Discharge Recommendations Home with Assistance,Home Health,Outpatient PT Transportation Needs at Discharge Private Vehicle,Wheelchair/ Cabulance
--- NOTE | 2023-04-24 13:10 | PT.IPTN ---
Current Diagnoses Unilateral primary osteoarthritis, left hip (04/23/23) Surgery Performed Operation Date: 04/23/23 13:45 Actual Procedures p Total Hip Arthroplasty(Left) - Tena Casillas MD Physical Therapy Treatment Note M2 PT-IP Current Condition Start: 04/24/23 11:46 Freq: NEEDED Status: Active Protocol: Document 04/24/23 09:50 [facility] (Rec: 04/24/23 12:03 AB [id number]) Physical Therapy Current Condition Current Condition Evaluation Date 04/24/23 Treatment Diagnosis s/p L JEFFERY posterior; difficulty in walking Onset Date 04/23/23 M3 PT-IP Subjective Start: 04/24/23 11:46 Freq: NEEDED Status: Active Protocol: Document 04/24/23 13:10 [facility] (Rec: 04/24/23 16:10 AB [id number]) Subjective Physical Therapy Visit Type Type Treatment Note Visit Start Time 13:10 Visit Stop Time 14:00 Number of SPRING ASSEMBLER SUPERVISOR Visits 0 Physical Therapy Visit Comments Patient Comments agreeable to do PT Therapy Pain Assessment Pain When Pain Assessed During Mobility Pain Present Pain Present Pain Reported Location left hip Intensity 6 Pain Management Techniques Distraction,Modification of Treatment,Re-positioning, Timing of Activity with Medications M4 PT-IP Mobility and Gait Start: 04/24/23 11:46 Freq: NEEDED Status: Active Protocol: Document 04/24/23 13:10 [facility] (Rec: 04/24/23 16:10 AB [id number]) PT-Transfer Assessment Sit to and From Stand Sit to and from Stand Minimal Assistance,Use of Upper Extremities Equipment Transfer Assistive Device Gait Belt,Front Wheeled Walker Orthotic/Prosthetic Devices or Brace: No Comments Mobility Comments pt sitting on the chair and daughter in room. reviewed posterior hip precautions with pt and pt recalled 2/3. educated pt and daughter regarding posterior hip precautions. caregiver training initiated. educated daughter on how to use safety belt and how to assist pt. daughter was able to put safety belt on pt and assisted pt with sit to stand min A. pt c/o increase L hip pain and stated that she will not be able to walk. informed pt regarding pain control and mobility. nurse aware of pain. pt completed sit to stand again min A and max cues and only able to walk 3 ft using fWW mod to max A and max cues. pt presents with dragging gait with decrease LE clearance off the floor. pt wanting to sit back down. pt continue to c/o increase pain. positioned pt on the chair. call light and table placed within reach. caregiver training set up again for tomorrow at 11 am. informed pt and daughter again regarding mobility concerns and managing pain. nurse informed and stated that pt has been moving SBA this morning with them and pt also refuse her other pain meds aside from tylenol or advil. Gait Assessment Gait Gait Assistance Required: Moderate Assistance,Maximum Assistance,1 Person Assist Distance (Feet) 3 Able to Maintain Weight Bearing Status Yes During Gait Assistive Devices Assistive Device Gait Belt,Front Wheeled Walker Orthotic/Prosthetic Devices or Brace: No Gait Deviations General Gait Pattern Antalgic,Decreased Stride Length,Decreased Feet Clearance,Step-to Gait Factors Limiting Gait Function Factors Limiting Gait Function Decreased Activity Tolerance, Decreased Strength,Difficulty Following Directions,Limited Range of Motion,Pain,Poor Balance,Poor Safety Awareness M5 PT-IP Objective Assessments Start: 04/24/23 11:46 Freq: NEEDED Status: Active Protocol: Document 04/24/23 09:50 [facility] (Rec: 04/24/23 12:03 AB [id number]) Orientation Orientation/Cognition Level of Alertness Alert Orientation Name Safety Awareness Decreased Safety Awareness Memory Description Short Term Impaired Gross Range of Motion Lower Extremity ROM Assessment Within Functional Limits Strength Lower Extremity Strength Assessment Left Impaired Hip 3-/5 Knee 3+/5 Sensation Assessment Sensation Gross Sensation WNL Muscle Tone Muscle Tone WNL Yes M6 PT-IP Treatment Start: 04/24/23 11:46 Freq: NEEDED Status: Active Protocol: Document 04/24/23 13:10 AB (Rec: 04/24/23 16:10 AB [id number]) Physical Therapy Treatment Education Education Provided Precautions,Safety M7 PT-IP Assessment and Plan Start: 04/24/23 11:46 Freq: NEEDED Status: Active Protocol: Document 04/24/23 13:10 AB (Rec: 04/24/23 16:10 AB [id number]) PT Summary Assessment and Plan Potential Rehabilitation Potential Fair Summary Impairments Pain,ROM,Strength,Balance, Coordination,Sensation,Tone, Cognition,Bed Mobility, Transfers,Gait,Activity Tolerance Progress Towards Goals Slow Progress due to Pain Assessment Summary caregiver training initiated but further training is needed . pt unable to tolerate much activity this afternoon with c /o increase pain on L hip with mobility. d/c plan depending on progress. SNF vs home with 24 and HHPT. will continue to assess. Goals Bed Mobility Goal Independent Transfer Goal Independent,Front Wheeled Walker Gait Goal Independent,Front Wheel Walker Gait Distance 150 Other Goals up/down 1 step using FWW SBA Days to Meet Goals 5 Frequency of Treatment Frequency Of Treatment Twice a Day Treatment Plan Physical Therapy Treatment Plan Bed Mobility Training,Transfer Training,Gait Training, Therapeutic Exercise,Balance Retraining,Post Op Education, Discharge Planning,Hot or Cold Pack,Neuromuscular Re-ed, Coordination Retraining,Manual Therapy Other Recommendations and Next Treatment caregiver trainin04/25/23 @ [facility] 11am Precautions Posterior Hip Precautions No Hip Flexion > 90 degrees,No Hip Internal Rotation,No Hip Adduction Weight Bearing Status Weight Bearing Status Weight Bear as Tolerated Allowed Weight Bearing Amount (enter % LLE WBAT or #) (%) Recommendations To Nursing Amount of Assist Needed 1 Person Assist Discharge Recommendations PT Discharge Recommendations Home with 10/09 Assist Available,Home Health,SNF Rehab,Home vs SNF Transportation Needs at Discharge Wheelchair/Cabulance
[2023-04-24] MEDS: OXYCODONE IR 5 MG TABLET PO (14:45)
[2023-04-24] MEDS: METFORMIN HCL 500 MG TABLET 1000 MG PO (17:04)
[2023-04-24 19:00] VITALS: BP 138/64; PULSE 87; RESP 16; TEMP 36.5; O2SAT 95
--- NOTE | 2023-04-24 20:00 | P.PN_ITS ---
Subjective Subjective Date Patient Seen: 04/24/23 Time Patient Seen: 07:00 Interval history: This morning patient has no new complaints of nausea vomiting fever or chills. Patient states she has pre-operative numbness down her left leg with no change this morning. She was able to control her pain with oral medications. She was able to use the toilet with assistance last night. She is concerned about the drive to her house and ambulating at home with pain without assistance. Exam Vital Signs (past 8 hours): Oxygen Delivery Method Nasal Cannula Oxygen Flow Rate 0 Narrative Exam Narrative: Patient found sleeping in bed easily aroused. JENNIFER dressing appears to be well- maintained no signs of drainage. No increase in pain with compression of posterior thigh or calf on the left side. Sensation is grossly intact of the lower extremity. Patient is able to dorsiflex or plantarflex against resistance at the left ankle. Const General: cooperative and comfortable Resp Effort & Inspection: normal respiratory effort and able to speak in complete sentences Objective Labs 04/24/23 05:55 Labs: Laboratory Results - last 24 hr 04/24/23 05:55 Hgb 12.0 Hct 35.6 L PFSH Medical History (Updated 04/17/23 @ 14:28 by Barbara Cardoso RN) History of COVID-19 (03/02/23) Pre-diabetes Emphysema of lung Seasonal allergies History of adenomatous polyp of colon Hypothyroidism Chronic low back pain COPD (chronic obstructive pulmonary disease) Surgical History (Updated 04/17/23 @ 14:10 by Barbara Cardoso RN) Hx of tonsillectomy History of reversal of tubal ligation Hx of tubal ligation Hx of colonoscopy (09/14/20) History of carpal tunnel surgery of right wrist History of surgical removal of pilonidal cyst History of rotator cuff surgery Family History (Updated 09/14/20 @ 09:16 by Sandra Canela RN) Father Colon cancer Family/Other Colon cancer Social History household members: family and children Smoking Status: Former smoker alcohol intake: current Assessment & Plan Post-op Postoperative Procedures: Procedures Operation Date: 04/23/23 13:45 Actual Procedure Side Surgeon p Total Hip Arthroplasty Left Tena Casillas MD Postoperative day: 1 Postoperative plan narrative: Discharge home once cleared by PT. Patient has already received post operative medications and has been instructed in their use. Patient is reminded to take aspirin 81mg bid for DVT prophylaxis. Start outpatient physical therapy in 5-7 days. [facility] in 2 weeks for wound check. Time Spent With Patient Time with patient: less than 15 minutes Quality VTE Deep Vein Thrombosis/Pulmonary Embolism Present on Admission: No
[2023-04-24] MEDS: SODIUM CHLORIDE 0.9% FLUSH 10 ML IV (20:43)
--- NOTE | 2023-04-24 22:39 | PC.NURSE ---
Patient is alert and oriented. Breath sounds diminished at bases but CTA with RA sat of 95%; I.S. x 8 repetitions and able to get to 1000. HRR. Denied nausea. BT present and is passing flatus. Voiding without problem and denied dysuria. Is able to move herself in bed and is getting up to bathroom with walker and 1 assist as is still weak on left LE. JENNIFER dressing intact to left posterior hip and functioning; 2 small areas of dark drainage noted. Denied pain at rest and is tolerating with scheduled Tylenol + Ibuprofen and occasional oxycodone. CMS is intact bilaterally. Bilateral calf SCD's applied. Fall risk score is high and bed alarm is activated.
[2023-04-25] MEDS: IBUPROFEN 400 MG TABLET PO ×4 (01:19→13:10)
[2023-04-25] MEDS: ACETAMINOPHEN 325 MG TABLET 650 MG PO ×2 (04:57→10:36)
[2023-04-25] MEDS: LEVOTHYROXINE 50 MCG TABLET PO (04:59)
--- NOTE | 2023-04-25 07:47 | P.DS_ITS ---
History of Present Illness History of Present Illness Chief complaint: OPB Discharge Providers Provider Primary care physician: JOVITA Jo Consults: 04/23/23 06:00 Consult to Anesthesiology Routine Comment: Consulting Provider: Anesthesiologist Reason for consultation: Regional block for post operative pain control 04/23/23 16:50 Consult to Discharge Planning Routine Comment: Consult to Occupational Therapy Evaluate & Treat Comment: Physician Instructions: Evaluate and treat Consult to Physical Therapy Evaluate & Treat Comment: Physician Instructions: post op JEFFERY protocol Discharge provider: Keila Sal PA-C Exam Vital Signs (past 8 hours): Oxygen Delivery Method Room Air Oxygen Flow Rate 0 Objective Labs 04/24/23 05:55 PFS Medical History (Updated 04/17/23 @ 14:28 by Barbara Cardoso RN) History of COVID-19 (03/02/23) Pre-diabetes Emphysema of lung Seasonal allergies History of adenomatous polyp of colon Hypothyroidism Chronic low back pain COPD (chronic obstructive pulmonary disease) Surgical History (Updated 04/17/23 @ 14:10 by Barbara Cardoso RN) Hx of tonsillectomy History of reversal of tubal ligation Hx of tubal ligation Hx of colonoscopy (09/14/20) History of carpal tunnel surgery of right wrist History of surgical removal of pilonidal cyst History of rotator cuff surgery Family History (Updated 09/14/20 @ 09:16 by Sandra Canela RN) Father Colon cancer Family/Other Colon cancer Social History household members: family and children Smoking Status: Former smoker alcohol intake: current Discharge Assessment & Plan Assessment and Plan Assessment: Status post left hip total arthroplasty posterior approach. Plan of Treatment: Discharge home today pending PT evaluation. Patient has already received post operative medications and has been instructed in their use. Start outpatient physical therapy in 5-7 days. [facility] 2 weeks for post-opp appt and wound check. Discharge Plan Discharge Plan Patient Disposition: Home Provider Discharge Comment: DC home pending PT approval. Discharge orders & Medications Discharge Orders: Discharge (Order); Ordered 04/25/23 Ordered By: Michelle Mueller Prescriptions: Continued metformin 500 mg Tablet 1,000 mg PO QPM albuterol sulfate 90 mcg/actuation Hfa Aerosol Inhaler 2 puff INHALATION Q4-6H PRN (Reason: Shortness Of Breath) albuterol sulfate 2.5 mg /3 mL (0.083 %) Solution For Nebulization 2.5 mg INHALATION QID PRN (Reason: WHEEZES) levothyroxine 50 mcg tablet 50 mcg PO DAILY montelukast 10 mg tablet 10 mg PO DAILY Follow up/Referrals: Josi Harding FNP-C [Primary Care Provider] - Tena Casillas MD [Physician] - 05/08/23 11:30 am (Follow up w/ Ronnell Pérez PA-C, at [facility] office in [place].) Diet/Activity/Treatments Diet: Diet as Tolerated Activity: Weightbearing as tolerated to left leg. Posterior hip precautions. Cold/Heat Therapy: Ice to hip as needed for pain. Skin/Wound/Dressing Care Report to your healthcare provider any signs of infection, such as:: chills, fever, night sweats, unusual drainage and unusual redness Dressing: May shower. Keep dressing in place until follow up in office. Batteries will in 5-7 days, at which point you can cut off the battery pack and dispose of it. No bathing or soaking incision. Call the office if the dressing becomes saturated inside. Visit Report/Discharge Packet Instructions: DI for Hip Replacement, DI for Prescription Opioid Use Stand Alone Forms: Patient Portal/API, Surgery Discharge Discharge Data Primary Care Provider: Josi Harding Attending Provider: Tena Casillas Quality VTE Deep Vein Thrombosis/Pulmonary Embolism Present on Admission: No
[2023-04-25 08:00] VITALS: BP 108/46; PULSE 77; RESP 16; TEMP 36.4; O2SAT 93
[2023-04-25] MEDS: OXYCODONE IR 5 MG TABLET PO (09:04)
[2023-04-25] MEDS: DOCUSATE 100 MG CAPSULE PO (09:04)
[2023-04-25] MEDS: ASPIRIN EC 81 MG TABLET PO (09:04)
[2023-04-25] MEDS: MONTELUKAST 10 MG TABLET PO (09:04)
[2023-04-25] MEDS: SODIUM CHLORIDE 0.9% FLUSH 10 ML IV (09:06)
--- NOTE | 2023-04-25 10:25 | OT.IP.TRT ---
Current Diagnoses Unilateral primary osteoarthritis, left hip (04/23/23) Surgery Performed Operation Date: 04/23/23 13:45 Actual Procedures p Total Hip Arthroplasty(Left) - Tena Casillas MD Occupational Therapy Treatment Note M2 OT-IP Current Condition Start: 04/24/23 11:11 Freq: Status: Active Protocol: Document 04/24/23 08:55 [facility] (Rec: 04/24/23 11:25 [facility] [id number]) Occupational Therapy Current Condition Current Condition Evaluation Date 04/24/23 Treatment Diagnosis S/P L JEFFERY posterior approach Diagnosis Onset Date 04/23/23 Post Operative Precautions Posterior Hip Precautions No Hip Flexion > 90 degrees,No Hip Internal Rotation,No Hip Adduction M3 OT- IP Subjective and Pain Start: 04/24/23 11:11 Freq: Status: Active Protocol: Document 04/25/23 10:36 [facility] (Rec: 04/25/23 10:46 [facility] [id number]) OT- Subjective Occupational Therapy Visit Type Type Treatment Note Visit Start Time 10:10 Visit Stop Time 10:25 Occupational Therapy Visit Comments Patient Comments Pt not wanting to shower or get dressed at this time. Pt and daughter agreed to go over OT needs. Patient/Caregiver Goals TO go home. OT Pain Assessment Pain When Pain Assessed At Rest Pain Present Pain Present Denied Pain M4 OT- IP ADL's Start: 04/24/23 11:11 Freq: Status: Active Protocol: Document 04/25/23 10:36 [facility] (Rec: 04/25/23 10:46 [facility] [id number]) OT UKI-Dare-Svohbcm General Evaluation Self-Feeding Ability Independent OT ADL-Grooming General Evaluation Grooming Ability Independent OT ADL-Oral Care General Eval Oral Care Ability Independent Comments Oral Care Comments ABle to do while standing. OT ADL-Dressing Comments OT Dressing Comments Pt to have assist or get sock aid. Pt aware to mili LLE first and take out last for LB dressing needs. OT ADL-Toileting Comments OT Toileting Comments Suggested to get a BSC so to be easier to stand, also if having to use the bathroom often. OT ADL-Bathing Comments OT Bathing Comments Pt states to just sponge off initially at home. Pt wanting to shower later, nursing aware . M5 OT- IP IADL's Start: 04/24/23 11:11 Freq: Status: Active Protocol: Document 04/24/23 08:55 [facility] (Rec: 04/24/23 11:25 [facility] [id number]) OT-Instrumental Activities of Daily Living Deficits IADL Deficits Identified Deficits Home Safety Awareness Awareness of Need for Assistance at Home Good Awareness Ability to Problem Solve Emergency Able to Problem Solve Situations Home Safety Comments Pt's sister and family to assist as needed. Meal Preparation Meal Preparation Caregiver Provides Assist Developmental Therapist Developmental Therapist Caregiver Provides Assist M6 OT- IP Functional Cognition Start: 04/24/23 11:11 Freq: Status: Active Protocol: Document 04/25/23 10:36 [facility] (Rec: 04/25/23 10:46 [facility] [id number]) Cognitive Factors Limiting Selfcare Function Cognitive Ability Level of Alertness Alert Patient Orientation Name,Age,Birthday,Month,Date, Year,Day of Week,Place, Situation Attention Span Ability Capable of Focused Attention, Capable of Sustained Attention Ability to Follow Commands Able to Follow Multi-Step Commands Cognitive Comments Cognitive Assessment Comments Pt intact and good ability and safety to follow her hip precautions for ADl and mobility needs. M7 OT- IP Mobility and Balance Start: 04/24/23 11:11 Freq: Status: Active Protocol: Document 04/25/23 10:36 [facility] (Rec: 04/25/23 10:46 [facility] [id number]) OT-Transfer Assessment Sit to and From Stand Sit to and from Stand Standby Assistance Transfers Transfer Ability Standby Assistance Technique Transfer Destination Chair Transfer Technique Stand Step Pivot Devices Transfer Assistive Devices Gait Belt,Front Wheeled Walker Comments Mobility Comments SBA with FWW. Pt remembered that she has a leg parts department manager to assist to get to LLE in and out of the bed. Able to go over car transfer needs with the pt. OT- Balance Assessment Sitting Balance and Reactions Static Sitting Balance Ability Normal Dynamic Sitting Balance Ability Good Standing Balance and Reactions Static Standing Balance Ability Good Dynamic Standing Balance Ability Fair M8 OT- IP Objective Assessments Start: 04/24/23 11:11 Freq: Status: Active Protocol: Document 04/24/23 08:55 [facility] (Rec: 04/24/23 11:25 [facility] [id number]) OT Gross Range of Motion Upper Extremity Range of Motion Assessment Within Functional Limits OT Strength Upper Extremity Strength Assessment Within Functional Limits M9 OT- IP Assessment and Plan Start: 04/24/23 11:11 Freq: Status: Active Protocol: Document 04/25/23 10:36 [facility] (Rec: 04/25/23 10:46 [facility] [id number]) OT Summary Assessment and Plan Potential Rehabilitation Potential Good Analytic Complexity at Evaluation Low Summary OT Impairments Pain,Strength,Balance, Functional Mobility,Dressing, Toileting,Bathing,Toilet Transfers,Shower Transfers, Activity Tolerance Progress Towards Goals Progressing Toward Goals Assessment Summary Pt doing well and pt's daughter present for caregiver training and states good understanding for all ADl, mobility and equipment needs. Pt to go home when medically stable with assist Goals Self-Feeding Goal Independent Grooming Goal Independent Dressing Goal Independent,Long Handled Shoe Horn,Health Analyst,Sock Aid Toileting Goal Independent Bathing Goal Standby Assistance Toilet Transfer Goal Independent Shower Transfer Goal Standby Assistance Days to Meet Goals 5 Frequency of Treatment Frequency Of Treatment Once a Day Treatment Plan OT Treatment Plan ADL Training,Functional Mobility,Patient/Family Education,Discharge Planning Discharge Recommendations OT Discharge Recommendations Home with Assistance, Outpatient PT Home Equipment Needs BSC, tub bench, LB dressing equipment
--- NOTE | 2023-04-25 10:32 | PM.DS.1 ---
History of Present Illness History of Present Illness Chief complaint: OPB Narrative: Tita is a pleasent 72 year old female who is POD#2 s/p left JEFFERY, posterior by Dr. Casillas. Patient reports overall she is doing well, pain is well controlled with oral pain medication but she is feeling like she is struggling with her mobility. She expresses concerns with discharging today due to her inability to use the restroom without an assist. She plans to discharge to her sister's house where she will have more support in the immediate postop recovery period. Her sister's house does have 2 steps and she has not felt comfortable doing steps yet either. His postop medications at home already. Has outpatient postop physical therapy scheduled with [facility]. Denies fever, chills, chest pain, shortness of breath, nausea, or vomiting. Operative Date/Time/Diagnoses Date of procedure: 04/23/23 Time of procedure: 14:50 Pre-op diagnosis: Severe left hip OA Post-op diagnosis: same Procedure & Clinicians Procedure: Left total hip arthroplasty posterior Same procedure as scheduled: Yes Indications: The patient has had progressively worsening left hip pain with radiographic changes consistent with arthritis. Non-operative management has failed and the patient has requested total hip replacement. The risks, benefits and alternatives to surgery were discussed with the patient prior to proceeding. Risks discussed included, but were not limited to, failure to relieve pain, leg length discrepancy, dislocation, stiffness, infection, nerve damage, deep venous thrombosis, pulmonary embolism, stroke, coma, heart attack, permanent paralysis and , as well as the potential need for eventual revision of the prosthetic. Surgeon: Tena Casillas Gas Main Fitter Helper: Alexandre Pérez Anesthesia Type: General and Peripheral nerve block Discharge Providers Provider Discharge Date: 04/25/23 Primary care physician: JOVITA Jo Consults: 04/23/23 06:00 Consult to Anesthesiology Routine Comment: Consulting Provider: Anesthesiologist Reason for consultation: Regional block for post operative pain control 04/23/23 16:50 Consult to Discharge Planning Routine Comment: Consult to Occupational Therapy Evaluate & Treat Comment: Physician Instructions: Evaluate and treat Consult to Physical Therapy Evaluate & Treat Comment: Physician Instructions: post op JEFFERY protocol Discharge provider: Keila Sal PA-C Summary Hospital Course Discharge Diagnosis: left hip OA s/p left JEFFERY Hospital Course: Hospital course compllicated by poor mobility post-operatively. Exam Vital Signs (past 8 hours): - 04/25/23 08:00 Temperature 97.5 F L Pulse Rate 77 Respiratory Rate 16 Blood Pressure 108/46 L Pulse Oximetry 93 Oxygen Flow Rate 0 Oxygen Delivery Method Room Air Oxygen Flow Rate 0 Const General: cooperative, healthy appearing and comfortable Resp Effort & Inspection: normal respiratory effort and able to speak in complete sentences Cardio Rate: regular rate Skin Other: Intact, functioning, clean and dry erma dressing over the posterior left hip. Neuro Other: Sensation intact throughout bilateral lower extremities Extrem Other: 5/5 strength with DF, PF, EHL. Calves soft and non-tender bilaterally. Psych Mental Status: mental status grossly normal Speech and Movement: speech and movement normal Objective Labs 04/24/23 05:55 [facility] Medical History (Updated 04/17/23 @ 14:28 by Barbara Cardoso RN) History of COVID-19 (03/02/23) Pre-diabetes Emphysema of lung Seasonal allergies History of adenomatous polyp of colon Hypothyroidism Chronic low back pain COPD (chronic obstructive pulmonary disease) Surgical History (Updated 04/17/23 @ 14:10 by Barbara Cardoso RN) Hx of tonsillectomy History of reversal of tubal ligation Hx of tubal ligation Hx of colonoscopy (09/14/20) History of carpal tunnel surgery of right wrist History of surgical removal of pilonidal cyst History of rotator cuff surgery Family History (Updated 09/14/20 @ 09:16 by Sandra Canela RN) Father Colon cancer Family/Other Colon cancer Social History household members: family and children Smoking Status: Former smoker alcohol intake: current Discharge Assessment & Plan Assessment and Plan Assessment: Stale status post left hip total arthroplasty posterior approach. Plan of Treatment: Discharge home today pending PT evaluation. Patient has already received post operative medications and has been instructed in their use. Continue multimodal pain management, ice to the hip for additional pain control. Continue to work on monility with outpatient physical therapy, start in 5-7 days. Weightbearing as tolerated, maintain posterior hip precautions. [facility] 2 weeks for post-opp appt and wound check. Keep dressing clean and dry until 2 week postop appointment. No soaking the incision site in pools or tubs, no topical ointments or creams to the incision site Discharge Plan Discharge Plan Patient Disposition: Home Provider Discharge Comment: DC home pending PT approval. Discharge orders & Medications Discharge Orders: Discharge (Order); Ordered 04/25/23 Ordered By: Michelle Mueller Prescriptions: Continued metformin 500 mg Tablet 1,000 mg PO QPM albuterol sulfate 90 mcg/actuation Hfa Aerosol Inhaler 2 puff INHALATION Q4-6H PRN (Reason: Shortness Of Breath) albuterol sulfate 2.5 mg /3 mL (0.083 %) Solution For Nebulization 2.5 mg INHALATION QID PRN (Reason: WHEEZES) levothyroxine 50 mcg tablet 50 mcg PO DAILY montelukast 10 mg tablet 10 mg PO DAILY Follow up/Referrals: Josi Harding FNP-C [Primary Care Provider] - Tena Casillas MD [Physician] - 05/08/23 11:30 am (Follow up w/ Ronnell Pérez PA-C, at [facility] office in [place].) Diet/Activity/Treatments Diet: Diet as Tolerated Activity: Weightbearing as tolerated to left leg. Posterior hip precautions. Cold/Heat Therapy: Ice to hip as needed for pain. Skin/Wound/Dressing Care Report to your healthcare provider any signs of infection, such as:: chills, fever, night sweats, unusual drainage and unusual redness Dressing: May shower. Keep dressing in place until follow up in office. Batteries will in 5-7 days, at which point you can cut off the battery pack and dispose of it. No bathing or soaking incision. Call the office if the dressing becomes saturated inside. Visit Report/Discharge Packet Instructions: DI for Hip Replacement, DI for Prescription Opioid Use Stand Alone Forms: Patient Portal/API, Surgery Discharge Discharge Data Primary Care Provider: Josi Harding Attending Provider: Tena Casillas Quality VTE Deep Vein Thrombosis/Pulmonary Embolism Present on Admission: No
--- NOTE | 2023-04-25 11:00 | PT.IPTN ---
Current Diagnoses Unilateral primary osteoarthritis, left hip (04/23/23) Surgery Performed Operation Date: 04/23/23 13:45 Actual Procedures p Total Hip Arthroplasty(Left) - Tena Casillas MD Physical Therapy Treatment Note M2 PT-IP Current Condition Start: 04/24/23 11:46 Freq: NEEDED Status: Active Protocol: Document 04/24/23 09:50 AB (Rec: 04/24/23 12:03 AB [id number]) Physical Therapy Current Condition Current Condition Evaluation Date 04/24/23 Treatment Diagnosis s/p L JEFFERY posterior; difficulty in walking Onset Date 04/23/23 M3 PT-IP Subjective Start: 04/24/23 11:46 Freq: NEEDED Status: Active Protocol: Document 04/25/23 11:32 TS (Rec: 04/25/23 11:39 TS [id number]) Subjective Physical Therapy Visit Type Type Treatment Note Visit Start Time 11:00 Visit Stop Time 11:29 Number of SEATING AND MOBILITY TECHNOLOGIST Visits 1 Physical Therapy Visit Comments Patient Comments agreeable to do PT Therapy Pain Assessment Pain When Pain Assessed At Rest Pain Present Pain Present Pain Reported Location left hip Pain Management Techniques Distraction,Modification of Treatment,Re-positioning, Timing of Activity with Medications M4 PT-IP Mobility and Gait Start: 04/24/23 11:46 Freq: NEEDED Status: Active Protocol: Document 04/25/23 11:32 TS (Rec: 04/25/23 11:39 TS [id number]) PT-Transfer Assessment Sit to and From Stand Sit to and from Stand Standby Assistance,Use of Upper Extremities Equipment Transfer Assistive Device Gait Belt,Front Wheeled Walker Orthotic/Prosthetic Devices or Brace: No Comments Mobility Comments Pt recalled 2/3 hip precautions prior to mobility( internal rotation). STS from chair SBA with 4WW, demonstrates good standing balance. She ambulated ~100' SBA with 4WW and a step to gait. She performed stairs x2 with 4WW on platform step CGA, pt had no buckling or LOB. Pt was left back in chair, all needs met. Gait Assessment Gait Gait Assistance Required: Standby Assistance Distance (Feet) 100 Able to Maintain Weight Bearing Status Yes During Gait Assistive Devices Assistive Device Gait Belt,Front Wheeled Walker Orthotic/Prosthetic Devices or Brace: No Gait Deviations General Gait Pattern Antalgic,Decreased Stride Length,Decreased Feet Clearance,Step-to Gait Factors Limiting Gait Function Factors Limiting Gait Function Decreased Activity Tolerance, Decreased Strength,Limited Range of Motion,Pain,Poor Balance Comments Gait Comments See mobility comments Stair Climbing Assessment Evaluation Level of Assist On Stairs Contact Guard Assistance,1 Person Assistance Devices Stair Climbing Assistive Devices Four Wheel Walker Technique/Endurance Stair Climbing Direction Ascend and Descend Stair Climbing Technique Step to Step Number of Steps Climbed 2 Comments Stair Climbing Comments See mobility comments PT-Balance Assessment Sitting Balance and Reactions Static Sitting Balance Ability Normal Dynamic Sitting Balance Ability Good Standing Balance and Reactions Static Standing Balance Ability Good Dynamic Standing Balance Ability Fair Device Used FWW M5 PT-IP Objective Assessments Start: 04/24/23 11:46 Freq: NEEDED Status: Active Protocol: Document 04/24/23 09:50 AB (Rec: 04/24/23 12:03 AB [id number]) Orientation Orientation/Cognition Level of Alertness Alert Orientation Name Safety Awareness Decreased Safety Awareness Memory Description Short Term Impaired Gross Range of Motion Lower Extremity ROM Assessment Within Functional Limits Strength Lower Extremity Strength Assessment Left Impaired Hip 3-/5 Knee 3+/5 Sensation Assessment Sensation Gross Sensation WNL Muscle Tone Muscle Tone WNL Yes M6 PT-IP Treatment Start: 04/24/23 11:46 Freq: NEEDED Status: Active Protocol: Document 04/25/23 11:32 TS (Rec: 04/25/23 11:39 TS [id number]) Physical Therapy Treatment Education Education Provided Precautions,Safety M7 PT-IP Assessment and Plan Start: 04/24/23 11:46 Freq: NEEDED Status: Active Protocol: Document 04/25/23 11:32 TS (Rec: 04/25/23 11:39 TS [id number]) PT Summary Assessment and Plan Potential Rehabilitation Potential Fair Summary Impairments Pain,ROM,Strength,Balance, Coordination,Sensation,Tone, Cognition,Bed Mobility, Transfers,Gait,Activity Tolerance Progress Towards Goals Progressing Toward Goals Assessment Summary Tita is making good progress with her mobility. She is SBA for STS with use of her 4WW and demonstrates good standing balance. She progressed her gait to ~100' SBA with use of 4WW. She performed steps x2 with 4WW on platform step CGA, she had no buckling or LOB. PT is recommending home with assist and outpatient PT. Goals Bed Mobility Goal Independent Transfer Goal Independent,Front Wheeled Walker Gait Goal Independent,Front Wheel Walker Gait Distance 150 Other Goals up/down 1 step using FWW SBA Days to Meet Goals 5 Frequency of Treatment Frequency Of Treatment Twice a Day Treatment Plan Physical Therapy Treatment Plan Bed Mobility Training,Transfer Training,Gait Training, Therapeutic Exercise,Balance Retraining,Post Op Education, Discharge Planning,Hot or Cold Pack,Neuromuscular Re-ed, Coordination Retraining,Manual Therapy Precautions Posterior Hip Precautions No Hip Flexion > 90 degrees,No Hip Internal Rotation,No Hip Adduction Weight Bearing Status Weight Bearing Status Weight Bear as Tolerated Allowed Weight Bearing Amount (enter % LLE WBAT or #) (%) Recommendations To Nursing Amount of Assist Needed 1 Person Assist Discharge Recommendations PT Discharge Recommendations Home with Assistance, Outpatient PT Transportation Needs at Discharge Wheelchair/Cabulance
--- NOTE | 2023-04-25 11:01 | CM.DPC ---
DCP Cont. Reviewed EMR and team rounds for status updates. Pt has improved and is now medically cleared for home d/c following working with PT. Dtr will plan to transport. No further DCP needs identified at this time.
--- NOTE | 2023-04-25 14:10 | PC.NURSE ---
Pt is dressed and ready for discharge home with Daughter. IV has been removed. Pt has showered. Went over d/c instructions with Pt-discussed d/c meds, time of last dose, reviewed stroke education, posterior hip precautions, no driving while taking narcotics, drink plenty of fluids to prevent constipation or dehydration, do not exceed 3000mg of acetaminophen within 24 hours to avoid liver damage and follow up as scheduled. Pt denied further questions and will be taken out via w/c by [employer] to POV with Daughter and all belongings.
== END 2023-04-25 14:33 | disposition home or self-care (01) ==
LOC: OR 11:40 → AC 11:40
PROVIDERS: Physician Assistant; PCP Registered Nurse; Referring Provider Orthopaedic Surgery; Visit Provider Orthopaedic Surgery
PROC: 0SRB0JZ Replacement of Left Hip Joint with Synthetic Substitute, Open Approach (ICD-10-PCS; CPT 27130; principal; 2023-04-23 13:45)
DX: M16.12 Unilateral primary osteoarthritis, left hip (principal); E66.9 Obesity, unspecified; Z68.39 Body mass index [BMI] 39.0-39.9, adult; J44.9 Chronic obstructive pulmonary disease, unspecified
CPT/HCPCS: 27130; 36415; 72170; 73502; 85014; 85018; 97116; 97162; 97165; 97530; 97535; C1776; A9270; C9290; J0171; J0690; J1170; J1885; J2405; J2704; J3410